=== PATIENT | female | born 1960 | race Caucasian/White ===

== ENCOUNTER 2017-12-09 20:35 | Emergency (ER) | payer OTHER ==
--- OUTSIDE RECORDS SUMMARY | 2017-12-09 20:37 | XMS REPORT | Clinical Summary ---
:1960 Author Organization [facility] Address [address] [place] [address] Care Team Providers Name Role Phone Floyd Esparza MD Primary Care Provider Allergies Active Allergy Reactions Severity Noted Date Comments Ibuprofen Other (See Comments) 12/18/2015 Codeine GI Intolerance 12/18/2015 Minocycline Other (See Comments) 12/18/2015 Penicillins Rash Low 12/18/2015 Sulfa (Sulfonamide Antibiotics) Rash Low 12/18/2015 Hydrocodone-Acetaminophen GI Intolerance Low 12/18/2015 Current Medications Prescription Sig. Disp. Refills Start Date End Date Status loratadine (CLARITIN) 10 Take 10 mg by Active mg tablet mouth daily. omeprazole (PriLOSEC) 20 Take 20 mg by Active MG capsule mouth daily. atorvastatin (LIPITOR) 20 Take 20 mg by Active MG tablet mouth nightly. Active Problems Problem Noted Date Squamous cell carcinoma of left hand 02/24/2016 Ganglion cyst, Bilateral 02/11/2016 Hand pain 02/11/2016 Ganglion of flexor tendon sheath of right index finger 12/18/2015 Family History Medical History Relation Name Comments Cancer Father Family Hx Cancer Other paternal family Anesthesia problems Neg Hx Relation Name Status Comments Father (Age 76) Other paternal family Social History Tobacco Use Types Packs/Day Years Used Date Current Every Day Smoker Cigarettes 0.5 33 Tobacco Cessation: Ready to Quit: No Alcohol Use Drinks/Week oz/Week Comments Yes 1 Standard drinks or equivalent 0.6 3x's week Sex Assigned at Date Recorded Not on file Last Filed Vital Signs Not on file Plan of Treatment Health Maintenance Due Date Last Done Comments CERVICAL CANCER SCREENING 01/27/1980 BREAST CANCER SCREENING 2009 COLON CANCER SCREENING 2009 SHINGRIX VACCINE (#1) 2009 INFLUENZA VACCINE 02/22/2018 Results Not on fileafter 12/08/2016 Insurance Payer Benefit Plan / Group Subscriber ID Type Phone Address [facility] xxxxxxxxxxx [facility] Home: [address] [phone] [place], [place] [id number]
[2017-12-09] MEDS ORDERED: TETANUS & DIPHTHERIA TOX,ADULT 0.5 ML VIAL ONE (21:46)
[2017-12-09] MEDS ORDERED: LIDOCAINE 1% W/EPI 1:100,000 MDV 50 ML VIAL ONE (21:46)
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
[2017-12-10 01:09] VITALS: TEMP 98.5
[2017-12-10 01:13] VITALS: BP 132/82; O2SAT 98
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
== END 2017-12-10 00:57 | disposition home or self-care (01) ==
LOC: ER 20:35
PROC: 08QNXZZ Repair Right Upper Eyelid, External Approach (ICD-10-PCS; principal; 2017-12-10)
PROC: 0JQJ0ZZ Repair Right Hand Subcutaneous Tissue and Fascia, Open Approach (ICD-10-PCS; 2017-12-10)
DX: S52.611A Displaced fracture of right ulna styloid process, initial encounter for closed fracture (principal); S01.111A Laceration without foreign body of right eyelid and periocular area, initial encounter; S61.411A Laceration without foreign body of right hand, initial encounter; Y08.89XA Assault by other specified means, initial encounter; Y93.9 Activity, unspecified; Y92.481 Parking lot as the place of occurrence of the external cause; Z23 Encounter for immunization; Z88.0 Allergy status to penicillin; Z88.2 Allergy status to sulfonamides; Z88.5 Allergy status to narcotic agent; E03.9 Hypothyroidism, unspecified; F17.210 Nicotine dependence, cigarettes, uncomplicated
CPT/HCPCS: 70450; 71045; 72125; 90714; 99284